=== PATIENT | male | born 1970 | race Hispanic/Latino ===

== ENCOUNTER 2017-05-30 20:46 | Emergency (ER) | payer BC ==
[2017-05-30] MEDS ORDERED: Tetanus/Diphtheria Toxoids 0.5 ml Syringe IM ONE ×2 (21:34→22:11)
[2017-05-30] MEDS ORDERED: Lidocaine 1% Inj (20ml) ONE (21:41)
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
[2017-05-30 22:18] VITALS: BP 137/86; PULSE 97; RESP 20; TEMP 98.1
[2017-05-30 22:19] VITALS: O2SAT 97
== END 2017-05-30 22:30 | disposition home or self-care (01) ==
LOC: C.ER 20:46
DX: S01.511A Laceration without foreign body of lip, initial encounter (principal); Y04.0XXA Assault by unarmed brawl or fight, initial encounter